=== PATIENT | male | born 1975 ===

== ENCOUNTER 2024-04-19 20:28 | Emergency (ER) | payer SELFPAY ==
[~2024-04-19] VITALS: Ht 180.3 cm; Wt 68.0 kg
== END 2024-04-19 21:07 | disposition home or self-care (01) ==
LOC: ER 20:28
DX: G89.18 Other acute postprocedural pain (principal); M79.641 Pain in right hand; R45.1 Restlessness and agitation; F19.10 Other psychoactive substance abuse, uncomplicated; R46.89 Other symptoms and signs involving appearance and behavior; Z91.199 Patient's noncompliance with other medical treatment and regimen due to unspecified reason; Z98.890 Other specified postprocedural states
CPT/HCPCS: 99282